=== PATIENT | female | born 1980 | race Two or more races ===

== ENCOUNTER 2023-07-21 04:37 | Inpatient (IN) | payer SELFPAY ==
[2023-07-21] MEDS ORDERED: Water For Irrigation,Sterile 1,000 ML Container IRR PRN (04:52)
[2023-07-21] MEDS ORDERED: Misoprostol 200 MCG Tab PO PRN (04:52)
[2023-07-21] MEDS ORDERED: Sodium Chloride 0.9% 20 ML SDV IV PRN ×2 (04:52→08:34)
[2023-07-21] MEDS ORDERED: Tranexamic Acid IN NACL,ISO-OS 1,000 MG in Premix Bag 1 BAG IV PRN (04:52)
[2023-07-21] MEDS ORDERED: Lidocaine 1% 50 ML MDV INJECT PRN (04:52)
[2023-07-21] MEDS ORDERED: Sodium Chloride 0.9% 2.5 ML Syringe FLUSH PRN ×2 (04:52→08:34)
[2023-07-21] MEDS ORDERED: Sodium Chloride 0.9% 10 ML Syringe FLUSH PRN ×2 (04:52→08:34)
[2023-07-21] MEDS ORDERED: Ondansetron 4 MG/2 ML SDV IVPUSH PRN ×3 (04:52→08:08)
[2023-07-21] MEDS ORDERED: Butorphanol 2 MG/ML SDV IVPUSH PRN (04:52)
[2023-07-21] MEDS ORDERED: Carboprost Tromethamine 250 MCG/1 mL Vial IM PRN (04:52)
[2023-07-21] MEDS: Ampicillin 2 GM in Sodium Chloride 0.9% 100 ML IV ONE (05:13)
[2023-07-21] MEDS: Lactated Ringers 1,000 ML IV SCH (05:13)
[2023-07-21] MEDS: Oxytocin/0.9 % Sodium Chloride 30 UNIT/500 ML BAG IV SCH (05:55)
[2023-07-21 06:18] LABS: HEMATOCRIT 38.8 % (37.0-47.0); HEMOGLOBIN 13.7 g/dL (12.0-16.0); MEAN CORPUSCULAR HEMOGLOBIN 31.1 pg (28.0-32.0); MEAN CORPUSCULAR HGB CONC 35.3 g/dL (32.0-36.0); MEAN PLATELET VOLUME 12.5 fL (9.4-12.3); PLATELET COUNT,PLT 265 K/uL (150-400); RED BLOOD CELL COUNT 4.41 M/uL (4.10-5.30); WHITE BLOOD CELL COUNT,WBC 12.62 K/uL (3.9-11.3)
[2023-07-21] MEDS ORDERED: Succinylcholine/Sod PF 100 MG/5 ML SYRINGE IV ONE (06:36)
[2023-07-21] MEDS ORDERED: Propofol 200 MG/20 ML SDV ONE ×2 (06:40→07:10)
[2023-07-21] MEDS ORDERED: Oxytocin 10 Units/1 ML SDV ONE ×2 (06:45→06:58)
[2023-07-21] MEDS ORDERED: fentaNYL 100 MCG/2 ML SDV ONE ×2 (06:46→06:53)
[2023-07-21] MEDS ORDERED: ceFAZolin 1 GM Vial ONE ×2 (06:47→10:12)
[2023-07-21] MEDS ORDERED: Tranexamic Acid 1,000 MG/10 ML Vial ONE (06:47)
[2023-07-21] MEDS ORDERED: Calcium Chloride 10% 1 GM/10 ML Syringe ONE (06:51)
[2023-07-21] MEDS ORDERED: Ondansetron 4 MG/2 ML SDV ONE (06:54)
[2023-07-21] MEDS ORDERED: Sugammadex Sodium 200 MG/2 ML VIAL IV ONE (06:55)
[2023-07-21 07:01] LABS: A/G RATIO 0.5 (0.9-1.6); ALBUMIN 2.4 g/dL (3.4-5.0); BILIRUBIN TOTAL 0.3 mg/dL (0.2-1.0); CALCIUM 8.4 mg/dL (8.5-10.1); CARBON DIOXIDE,CO2 21.5 mmol/L (21.0-32.0); CREATININE 0.8 mg/dL (0.6-1.0); EST CRCL DRUG DOSING (CG) 66.47 mL/min; POTASSIUM,K 3.9 mmol/L (3.5-5.1); PROTEIN TOTAL,TP 6.9 g/dL (6.4-8.2)
[2023-07-21] MEDS ORDERED: Ropivacaine 0.5% 5 MG/ML 30 ML SDV ONE (07:13)
[2023-07-21] MEDS ORDERED: Morphine PF 10 MG/10 ML SDV ONE (07:14)
[2023-07-21] MEDS ORDERED: HYDROmorphone 2 MG/ML Syringe ONE (07:35)
[2023-07-21] MEDS ORDERED: Witch Hazel Medicated Pads 40/Jar TOP PRN (07:49)
[2023-07-21] MEDS ORDERED: Hydrocortisone 2.5% Crm 30 GM Tube TOP PRN (07:49)
[2023-07-21] MEDS ORDERED: Misoprostol 200 MCG Tab RECTAL PRN (07:49)
[2023-07-21] MEDS ORDERED: Bisacodyl 10 MG Supp RECTAL PRN (07:49)
[2023-07-21] MEDS ORDERED: diphenhydrAMINE 50 MG/ML SDV IVPUSH PRN (07:49)
[2023-07-21] MEDS ORDERED: Lanolin 100% Cream 7 GM Tube TOP PRN (07:49)
[2023-07-21] MEDS: HYDROmorphone 1 MG/ML Syringe ONE (07:59)
[2023-07-21] MEDS ORDERED: Oxytocin/0.9 % Sodium Chloride 30 UNIT/500 ML BAG IV SCH (08:00)
[2023-07-21] MEDS ORDERED: Lactated Ringers 1,000 ML IV SCH (08:00)
[2023-07-21] MEDS ORDERED: Acetaminophen 1,000 MG in Premix Bag 1 BAG IV SCH (08:00)
[2023-07-21] MEDS ORDERED: Rocuronium Bromide 50 MG/5 ML Syringe ONE (08:03)
[2023-07-21] MEDS ORDERED: HYDROmorphone 1 MG/ML Syringe IVPUSH PRN (08:08)
[2023-07-21] MEDS ORDERED: Morphine 2 MG/ML SYRINGE IVPUSH PRN (08:08)
[2023-07-21] MEDS ORDERED: Naloxone 0.4 MG/ML SDV IVPUSH PRN (08:08)
[2023-07-21] MEDS ORDERED: droPERidol 5 MG/2 ML SDV IVPUSH PRN (08:08)
[2023-07-21] MEDS ORDERED: Metoclopramide 10 MG/2 ML SDV IVPUSH PRN (08:08)
[2023-07-21] MEDS ORDERED: Albuterol 0.083% 2.5 MG/3 ML Neb Soln NEB PRN (08:08)
[2023-07-21] MEDS ORDERED: fentaNYL 50 MCG/ML SDV IVPUSH PRN (08:08)
[2023-07-21 08:14] LABS: C. TRACHOMATIS BY PCR NOT DETECTED; N. GONORRHOEAE BY PCR NOT DETECTED
[2023-07-21] MEDS ORDERED: Calcium Gluconate 10% 1 GM/10 ML SDV IV PRN (08:34)
[2023-07-21 08:43] LABS: PH,UMBILICAL ARTERIAL 7.076 (7.18-7.38)
[2023-07-21 08:44] LABS: PH,UMBILICAL VENOUS 7.091 (7.25-7.45)
[2023-07-21] MEDS: Labetalol 100 MG/20 ML MDV IVPUSH ONE (09:40)
[2023-07-21] MEDS: Magnesium Sulfate/Water 4 GM in Premix Bag 1 BAG IV ONE (09:43)
[2023-07-21] MEDS: Docusate Sodium 100 MG Cap PO SCH (09:48)
[2023-07-21] MEDS: Ferrous Sulfate 325 MG Tab PO SCH (09:48)
[2023-07-21] MEDS: Ketorolac 30 MG/ML SDV IVPUSH SCH (09:49)
[2023-07-21] MEDS: ceFAZolin 2 GM in Sodium Chloride 0.9% 50 ML IV SCH (09:52)
[2023-07-21] MEDS: Magnesium Sulfate/Water 20 GM/500 ML BAG IV SCH (10:08)
[2023-07-21 10:41] LABS: APPEARANCE,URINE CLEAR; BILIRUBIN,URINE NEGATIVE (NEGATIVE); COLOR,URINE YELLOW; GLUCOSE,URINE NEGATIVE (NEGATIVE); KETONES,URINE NEGATIVE (NEGATIVE); LEUKOCYTE ESTERASE,URINE NEGATIVE (NEGATIVE); NITRITE,URINE NEGATIVE (NEGATIVE); OCCULT BLOOD,URINE SMALL (NEGATIVE); PROTEIN,URINE TRACE mg/dL (NEGATIVE); UROBILINOGEN,URINE 0.2 EU/dL (<2.0)
[2023-07-21 11:00] LABS: CREATININE,URINE RAND 36.8 mg/dL; PROTEIN CREATININE RATIO,URINE 1.6; PROTEIN,URINE RANDOM 58.9 mg/dL (<11.9)
[2023-07-21 11:02] LABS: BACTERIA,URINE RARE (NEGATIVE); EPITHELIAL CELLS,URINE RARE (NONE-FEW); MUCUS,URINE LIGHT (NONE-MOD); RBC,URINE 0-2 (0-2/HPF); WBC,URINE 0-2 (0-5/HPF)
[2023-07-21 11:06] LABS: AMPHETAMINES SCREEN, URINE NEGATIVE (CUTOFF=500); BARBITURATE SCREEN,URINE NEGATIVE (CUTOFF=200); BENZODIAZEPINES SCREEN,URINE NEGATIVE (CUTOFF=150); BUPRENORPHINE SCREEN,URINE NEGATIVE (CUTOFF=10); METHADONE SCREEN, URINE NEGATIVE (CUTOFF=200); METHAMPHETAMINES SCREEN, URINE NEGATIVE (CUTOFF=500); OXYCODONE SCREEN,URINE NEGATIVE (CUT0FF=100); PCP SCREEN,URINE NEGATIVE (CUTOFF=25); THC SCREEN,URINE 20 NG/ML NEGATIVE (CUTOFF=50)
[2023-07-21] MEDS: Lisinopril 10 MG Tab PO SCH (11:07)
[2023-07-21] MEDS ORDERED: Simethicone 80 MG Tab.Chew PO SCH (12:00)
[2023-07-21] MEDS: Simethicone 80 MG Tab.Chew PO SCH (12:18)
[2023-07-21] MEDS: Acetaminophen 1,000 MG in Premix Bag 1 BAG IV SCH (14:18)
[2023-07-21] MEDS: NIFEdipine 10 MG Cap PO ONE (14:54)
[2023-07-21] MEDS ORDERED: Misoprostol 200 MCG Tab ONE (18:38)
[2023-07-21] MEDS ORDERED: Temazepam 15 MG Cap PO PRN (21:00)
[2023-07-22 02:54] LABS: HEMATOCRIT 32.4 % (37.0-47.0); HEMOGLOBIN 11.7 g/dL (12.0-16.0); MEAN CORPUSCULAR HEMOGLOBIN 31.3 pg (28.0-32.0); MEAN CORPUSCULAR HGB CONC 36.1 g/dL (32.0-36.0); MEAN CORPUSCULAR VOLUME 86.6 fL (83.0-99.0); MEAN PLATELET VOLUME 11.3 fL (9.4-12.3); PLATELET COUNT,PLT 251 K/uL (150-400); RED BLOOD CELL COUNT 3.74 M/uL (4.10-5.30); WHITE BLOOD CELL COUNT,WBC 14.83 K/uL (3.9-11.3)
[2023-07-22 02:59] LABS: GROUP B STREP BY PCR POSITIVE (NEGATIVE)
[2023-07-22] MEDS: Acetaminophen/oxyCODONE 325-5 MG Tab PO PRN ×2 (13:54→19:59)
[2023-07-23] MEDS: Ibuprofen 800 MG Tab PO PRN (00:27)
== END 2023-07-23 23:32 | disposition home or self-care (01) | DRG 787 ==
LOC: MW.OBCHECK 04:37 → MW.OB 04:38 → MW.OBCHECK 04:44 → MW.OB 04:45 → OBSVTOIN 06:41 → MW.OB 23:47
PROVIDERS: ADMIT Obstetrics & Gynecology; ATTEND Obstetrics & Gynecology
PROC: 10D00Z1 Extraction of Products of Conception, Low, Open Approach (ICD-10-PCS; principal; 2023-07-21 06:30)
DX: O14.14 Severe pre-eclampsia complicating childbirth (principal); D62 Acute posthemorrhagic anemia; Z3A.38 38 weeks gestation of pregnancy; Z37.0 Single live birth; O76 Abnormality in fetal heart rate and rhythm complicating labor and delivery; O62.1 Secondary uterine inertia; O99.824 Streptococcus B carrier state complicating childbirth; O99.02 Anemia complicating childbirth
CPT/HCPCS: 36415; 51702; 59025; 59514; 74018; 74018-26; 80053; 80305-QW; 81001; 82570; 82803; 83615; 83735; 84112; 84156; 85027; 86592; 86762; 86803; 86850; 86900; 86901; 87340; 87389; 87491; 87591; 87653; A9270-GY; J0131; J0290; J0330; J0690; J1170; J1885; J1921; J2274; J2405; J2590; J2704; J2795; J3010; J3475; J3490; J7120

== ENCOUNTER 2024-02-28 04:23 | Emergency (ER) | payer SELFPAY ==
[2024-02-28] MEDS ORDERED: Sodium Chloride 0.9% 10 ML Syringe FLUSH PRN (05:06)
[2024-02-28] MEDS ORDERED: Sodium Chloride 0.9% 2.5 ML Syringe FLUSH PRN (05:06)
[2024-02-28] MEDS: Pantoprazole 40 MG in Sodium Chloride 0.9% 10 ML IVPUSH ONE (06:13)
[2024-02-28 06:23] LABS: BASOPHILS ABSOLUTE AUTO 0.02 K/uL (0.00-0.20); BASOPHILS PERCENT AUTO 0.2 % (0.0-1.0); EOSINOPHILS PERCENT AUTO 1.8 % (0.0-6.0); HEMATOCRIT 41.6 % (37.0-47.0); HEMOGLOBIN 14.3 g/dL (12.0-16.0); IMMATURE GRAN ABSOLUTE AUTO 0.03 K/uL (0.00-0.05); IMMATURE GRAN PERCENT AUTO 0.3 % (0.0-0.4); LYMPHOCYTES ABSOLUTE AUTO 2.26 K/uL (1.00-4.80); LYMPHOCYTES PERCENT AUTO 20.2 % (24.0-44.0); MEAN CORPUSCULAR HEMOGLOBIN 28.5 pg (28.0-32.0); MEAN CORPUSCULAR HGB CONC 34.4 g/dL (32.0-36.0); MEAN CORPUSCULAR VOLUME 82.9 fL (83.0-99.0); MEAN PLATELET VOLUME 9.2 fL (9.4-12.3); MONOCYTES ABSOLUTE AUTO 0.62 K/uL (0.00-0.80); MONOCYTES PERCENT AUTO 5.5 % (0.0-8.0); NEUTROPHILS ABSOLUTE AUTO 8.08 K/uL (1.80-7.70); PLATELET COUNT,PLT 355 K/uL (150-400); RED BLOOD CELL COUNT 5.02 M/uL (4.10-5.30); WHITE BLOOD CELL COUNT,WBC 11.21 K/uL (3.9-11.3)
[2024-02-28 06:30] LABS: APPEARANCE,URINE CLEAR; BILIRUBIN,URINE NEGATIVE (NEGATIVE); COLOR,URINE YELLOW; GLUCOSE,URINE NEGATIVE (NEGATIVE); KETONES,URINE NEGATIVE (NEGATIVE); LEUKOCYTE ESTERASE,URINE NEGATIVE (NEGATIVE); NITRITE,URINE NEGATIVE (NEGATIVE); OCCULT BLOOD,URINE NEGATIVE (NEGATIVE); PH,URINE 6.5 (5.0-8.0); PROTEIN,URINE NEGATIVE (NEGATIVE); UROBILINOGEN,URINE 0.2 EU/dL (<2.0)
[2024-02-28 06:31] LABS: AMORPHOUS SEDIMENT,URINE LIGHT (NEGATIVE); BACTERIA,URINE FEW (NEGATIVE); MUCUS,URINE NOT SEEN (NONE-MOD); RBC,URINE 0-1 (0-2/HPF); SQUAMOUS EPITHELIAL CELLS,UR FEW; WBC,URINE 0-1 (0-5/HPF)
[2024-02-28 06:45] LABS: A/G RATIO 1.1 (0.9-1.6); ALANINE AMINOTRANSFERASE,ALT 49 IU/L (14-63); ALBUMIN 4.3 g/dL (3.4-5.0); ALKALINE PHOSPHATASE 111 U/L (46-116); ASPARTATE AMNIOTRANSFERASE,AST 61 IU/L (15-37); BILIRUBIN TOTAL 0.3 mg/dL (0.2-1.0); BLOOD UREA NITROGEN,BUN 11 mg/dL (7.0-18.0); CALCIUM 9.1 mg/dL (8.5-10.1); CARBON DIOXIDE,CO2 28.3 mmol/L (21.0-32.0); CHLORIDE,CL 103 mmol/L (98-107); CREATININE 0.9 mg/dL (0.6-1.0); GLUCOSE RANDOM 131 mg/dL (74-106); LIPASE 51 U/L (16-77); POTASSIUM,K 3.9 mmol/L (3.5-5.1); PROTEIN TOTAL,TP 8.3 g/dL (6.4-8.2); SODIUM,NA 139 mmol/L (136-145)
[2024-02-28 06:46] LABS: ESTIMATED GFR 82 mL/min (>60)
[2024-02-28] MEDS ORDERED: Morphine 2 MG/ML SYRINGE IVPUSH PRN (07:37)
[2024-02-28] MEDS: Iopamidol 755 MG/ML 500 ML Multipack Bottle IVPUSH STA (08:01)
[2024-02-28] MEDS: Ondansetron 4 MG/2 ML SDV IVPUSH ONE (08:02)
== END 2024-02-28 09:17 | disposition home or self-care (01) ==
LOC: MW.ED 04:23
DX: K80.20 Calculus of gallbladder without cholecystitis without obstruction (principal); I10 Essential (primary) hypertension; Z79.899 Other long term (current) drug therapy
CPT/HCPCS: 36415; 74177; 80053; 81001; 81025; 83690; 84484; 85025; 96374; 96375; 99284; J2405; J2470; J3490; Q9967

== ENCOUNTER 2024-04-09 19:36 | Emergency (ER) | payer SELFPAY ==
[2024-04-09 20:52] LABS: BASOPHILS ABSOLUTE AUTO 0.02 K/uL (0.00-0.20); BASOPHILS PERCENT AUTO 0.1 % (0.0-1.0); EOSINOPHILS PERCENT AUTO 0.7 % (0.0-6.0); HEMATOCRIT 38.7 % (37.0-47.0); HEMOGLOBIN 13.5 g/dL (12.0-16.0); IMMATURE GRAN ABSOLUTE AUTO 0.03 K/uL (0.00-0.05); IMMATURE GRAN PERCENT AUTO 0.2 % (0.0-0.4); LYMPHOCYTES ABSOLUTE AUTO 1.77 K/uL (1.00-4.80); LYMPHOCYTES PERCENT AUTO 12.8 % (24.0-44.0); MEAN CORPUSCULAR HEMOGLOBIN 28.4 pg (28.0-32.0); MEAN CORPUSCULAR HGB CONC 34.9 g/dL (32.0-36.0); MEAN CORPUSCULAR VOLUME 81.3 fL (83.0-99.0); MEAN PLATELET VOLUME 9.2 fL (9.4-12.3); MONOCYTES ABSOLUTE AUTO 0.76 K/uL (0.00-0.80); MONOCYTES PERCENT AUTO 5.5 % (0.0-8.0); NEUTROPHILS ABSOLUTE AUTO 11.17 K/uL (1.80-7.70); NEUTROPHILS PERCENT AUTO 80.7 % (41.0-71.0); PLATELET COUNT,PLT 340 K/uL (150-400); RED BLOOD CELL COUNT 4.76 M/uL (4.10-5.30); WHITE BLOOD CELL COUNT,WBC 13.85 K/uL (3.9-11.3)
[2024-04-09] MEDS: Acetaminophen 500 MG Tab PO ONE (21:04)
[2024-04-09] MEDS: Sodium Chloride 0.9% 1,000 ML IV ONE (21:05)
[2024-04-09] MEDS: Lidocaine 4% 1 each Patch TOP STA (21:09)
[2024-04-09 21:12] LABS: APPEARANCE,URINE SLT CLOUDY; BILIRUBIN,URINE NEGATIVE (NEGATIVE); COLOR,URINE YELLOW; GLUCOSE,URINE NEGATIVE (NEGATIVE); KETONES,URINE NEGATIVE (NEGATIVE); LEUKOCYTE ESTERASE,URINE TRACE (NEGATIVE); NITRITE,URINE POSITIVE (NEGATIVE); OCCULT BLOOD,URINE NEGATIVE (NEGATIVE); PROTEIN,URINE NEGATIVE (NEGATIVE); UROBILINOGEN,URINE 0.2 EU/dL (<2.0)
[2024-04-09 21:22] LABS: BACTERIA,URINE 2+ (NEGATIVE); EPITHELIAL CELLS,URINE FEW (NONE-FEW); MUCUS,URINE LIGHT (NONE-MOD); RBC,URINE 0-1 (0-2/HPF); WBC,URINE 0-1 (0-5/HPF)
[2024-04-09 21:27] LABS: ALANINE AMINOTRANSFERASE,ALT 62 IU/L (14-63); ALBUMIN 4.1 g/dL (3.4-5.0); ALKALINE PHOSPHATASE 137 U/L (46-116); ASPARTATE AMNIOTRANSFERASE,AST 116 IU/L (15-37); BILIRUBIN TOTAL 0.3 mg/dL (0.2-1.0); BLOOD UREA NITROGEN,BUN 10 mg/dL (7.0-18.0); CALCIUM 8.8 mg/dL (8.5-10.1); CARBON DIOXIDE,CO2 25.9 mmol/L (21.0-32.0); CHLORIDE,CL 100 mmol/L (98-107); CREATININE 0.9 mg/dL (0.6-1.0); ESTIMATED GFR 82 mL/min (>60); GLUCOSE RANDOM 147 mg/dL (74-106); LIPASE 51 U/L (16-77); POTASSIUM,K 3.7 mmol/L (3.5-5.1); PROTEIN TOTAL,TP 8.1 g/dL (6.4-8.2); SODIUM,NA 139 mmol/L (136-145)
[2024-04-09] MEDS: Cefdinir 300 MG Cap PO ONE (22:27)
== END 2024-04-09 22:37 | disposition home or self-care (01) ==
LOC: MW.ED 19:36
DX: N39.0 Urinary tract infection, site not specified (principal); I10 Essential (primary) hypertension; Z79.899 Other long term (current) drug therapy; Z75.8 Other problems related to medical facilities and other health care
CPT/HCPCS: 36415; 71045; 80053; 81001; 81025; 83690; 83735; 84484; 85025; 87086; 87428; 99284; A9270; J7030

== ENCOUNTER 2024-06-17 15:09 | Emergency (ER) | payer OTHER ==
[2024-06-17] MEDS ORDERED: Sodium Chloride 0.9% 10 ML Syringe FLUSH PRN (15:16)
[2024-06-17] MEDS ORDERED: Sodium Chloride 0.9% 2.5 ML Syringe FLUSH PRN (15:16)
[2024-06-17] MEDS: Sodium Chloride 0.9% 1,000 ML IV ONE (17:05)
[2024-06-17] MEDS: Ondansetron 4 MG/2 ML SDV IVPUSH ONE (17:05)
[2024-06-17] MEDS: Ketorolac 30 MG/ML SDV IVPUSH ONE (17:05)
[2024-06-17 17:22] LABS: BASOPHILS ABSOLUTE AUTO 0.03 K/uL (0.00-0.20); BASOPHILS PERCENT AUTO 0.3 % (0.0-1.0); EOSINOPHILS ABSOLUTE AUTO 0.06 K/uL (0.00-0.45); EOSINOPHILS PERCENT AUTO 0.5 % (0.0-6.0); HEMATOCRIT 38.6 % (37.0-47.0); HEMOGLOBIN 13.6 g/dL (12.0-16.0); IMMATURE GRAN ABSOLUTE AUTO 0.04 K/uL (0.00-0.05); IMMATURE GRAN PERCENT AUTO 0.3 % (0.0-0.4); LYMPHOCYTES ABSOLUTE AUTO 2.21 K/uL (1.00-4.80); LYMPHOCYTES PERCENT AUTO 19.3 % (24.0-44.0); MEAN CORPUSCULAR HEMOGLOBIN 28.6 pg (28.0-32.0); MEAN CORPUSCULAR HGB CONC 35.2 g/dL (32.0-36.0); MEAN CORPUSCULAR VOLUME 81.3 fL (83.0-99.0); MEAN PLATELET VOLUME 9.7 fL (9.4-12.3); MONOCYTES ABSOLUTE AUTO 0.62 K/uL (0.00-0.80); MONOCYTES PERCENT AUTO 5.4 % (0.0-8.0); NEUTROPHILS ABSOLUTE AUTO 8.47 K/uL (1.80-7.70); NEUTROPHILS PERCENT AUTO 74.2 % (41.0-71.0); PLATELET COUNT,PLT 354 K/uL (150-400); RED BLOOD CELL COUNT 4.75 M/uL (4.10-5.30); WHITE BLOOD CELL COUNT,WBC 11.43 K/uL (3.9-11.3)
[2024-06-17] MEDS: Iopamidol 755 MG/ML 500 ML Multipack Bottle IVPUSH STA (18:06)
[2024-06-18 00:16] LABS: A/G RATIO 1.3 (0.9-1.6); ALBUMIN 4.5 g/dL (3.4-5.0); BILIRUBIN TOTAL 0.3 mg/dL (0.2-1.0); CALCIUM 8.8 mg/dL (8.5-10.1); CARBON DIOXIDE,CO2 26.8 mmol/L (21.0-32.0); CREATININE 0.7 mg/dL (0.6-1.0); EST CRCL DRUG DOSING (CG) 82.8 mL/min; POTASSIUM,K 3.4 mmol/L (3.5-5.1); PROTEIN TOTAL,TP 7.9 g/dL (6.4-8.2)
== END 2024-06-17 21:45 | disposition left against medical advice (07) ==
LOC: MW.ED 15:09
DX: K80.20 Calculus of gallbladder without cholecystitis without obstruction (principal); I10 Essential (primary) hypertension; Z79.899 Other long term (current) drug therapy
CPT/HCPCS: 36415; 74177; 76705; 80053; 83690; 84703; 85025; 96361; 96374; 96375; 99284; J1885; J2405; J7030; Q9967; 99283

== ENCOUNTER 2024-06-29 05:31 | Emergency (ER) | payer OTHER ==
[2024-06-29] MEDS ORDERED: droPERidol 2.5 MG/ML SDV IVPUSH PRN (05:41)
[2024-06-29 05:44] LABS: BASOPHILS ABSOLUTE AUTO 0.02 K/uL (0.00-0.20); BASOPHILS PERCENT AUTO 0.2 % (0.0-1.0); EOSINOPHILS ABSOLUTE AUTO 0.16 K/uL (0.00-0.45); EOSINOPHILS PERCENT AUTO 1.5 % (0.0-6.0); HEMATOCRIT 40.5 % (37.0-47.0); HEMOGLOBIN 13.8 g/dL (12.0-16.0); IMMATURE GRAN ABSOLUTE AUTO 0.03 K/uL (0.00-0.05); IMMATURE GRAN PERCENT AUTO 0.3 % (0.0-0.4); LYMPHOCYTES ABSOLUTE AUTO 3.15 K/uL (1.00-4.80); LYMPHOCYTES PERCENT AUTO 30.3 % (24.0-44.0); MEAN CORPUSCULAR HEMOGLOBIN 28.3 pg (28.0-32.0); MEAN CORPUSCULAR HGB CONC 34.1 g/dL (32.0-36.0); MEAN CORPUSCULAR VOLUME 83.2 fL (83.0-99.0); MEAN PLATELET VOLUME 9.4 fL (9.4-12.3); MONOCYTES ABSOLUTE AUTO 0.55 K/uL (0.00-0.80); MONOCYTES PERCENT AUTO 5.3 % (0.0-8.0); NEUTROPHILS ABSOLUTE AUTO 6.49 K/uL (1.80-7.70); NEUTROPHILS PERCENT AUTO 62.4 % (41.0-71.0); PLATELET COUNT,PLT 355 K/uL (150-400); RED BLOOD CELL COUNT 4.87 M/uL (4.10-5.30)
[2024-06-29] MEDS: Pantoprazole 40 MG in Sodium Chloride 0.9% 10 ML IVPUSH ONE (05:51)
[2024-06-29] MEDS: Ondansetron 4 MG/2 ML SDV IVPUSH ONE (05:52)
[2024-06-29] MEDS: HYDROmorphone 0.5 MG/0.5 ML Syringe IVPUSH ONE (05:52)
[2024-06-29] MEDS: Sodium Chloride 0.9% 1,000 ML IV ONE (05:52)
[2024-06-29 06:12] LABS: A/G RATIO 1.1 (0.9-1.6); BILIRUBIN TOTAL 0.4 mg/dL (0.2-1.0); CALCIUM 8.7 mg/dL (8.5-10.1); CARBON DIOXIDE,CO2 25.6 mmol/L (21.0-32.0); CREATININE 0.8 mg/dL (0.6-1.0); EST CRCL DRUG DOSING (CG) 72.45 mL/min; POTASSIUM,K 3.3 mmol/L (3.5-5.1); PROTEIN TOTAL,TP 7.8 g/dL (6.4-8.2)
[2024-06-29] MEDS: Iopamidol 755 MG/ML 500 ML Multipack Bottle IVPUSH ONE (06:15)
== END 2024-06-29 08:12 | disposition home or self-care (01) ==
LOC: MW.ED 05:31
DX: R10.84 Generalized abdominal pain (principal); G89.29 Other chronic pain; R11.2 Nausea with vomiting, unspecified; Z79.899 Other long term (current) drug therapy; Z87.59 Personal history of other complications of pregnancy, childbirth and the puerperium
CPT/HCPCS: 36415; 74177; 80053; 83605; 83690; 84703; 85025; 96361; 96374; 96375; 99284; J2405; J2470; J7030; Q9967; 99283

== ENCOUNTER 2024-07-01 09:24 | Day surgery (SDC) | payer OTHER ==
[2024-07-01] MEDS ORDERED: Propofol 200 MG/20 ML SDV ONE ×2 (10:06→11:19)
[2024-07-01] MEDS: Lactated Ringers 1,000 ML IV SCH (10:08)
[2024-07-01] MEDS ORDERED: Lactated Ringers 1,000 ML IV SCH (11:45)
== END 2024-07-01 12:05 | disposition home or self-care (01) ==
LOC: MW.SDS 09:24
PROVIDERS: ATTEND Surgery
DX: K31.89 Other diseases of stomach and duodenum (principal); K29.50 Unspecified chronic gastritis without bleeding; I10 Essential (primary) hypertension
CPT/HCPCS: 43239; 81025; J2704; J7120; 00731

== ENCOUNTER 2024-07-08 06:01 | Day surgery (SDC) | payer OTHER ==
[~2024-07-08 06:01] MED LIST: ceFAZolin 2 GM in Sodium Chloride 0.9% 50 ML IV ONE
[2024-07-08] MEDS: Lactated Ringers 1,000 ML IV SCH (07:00)
[2024-07-08] MEDS ORDERED: Bupivacaine 0.5% 30 ML SDV ONE (07:17)
[2024-07-08] MEDS: Scopalamine 1mg/3day Transdermal Patch TRDERM PRN (07:18)
[2024-07-08] MEDS ORDERED: Rocuronium Bromide 50 MG/5 ML Syringe ONE (07:39)
[2024-07-08] MEDS ORDERED: propofoL 500 MG/50 ML 50 ML ONE (07:39)
[2024-07-08] MEDS ORDERED: fentaNYL 250 MCG/5 ML SDV ONE (07:39)
[2024-07-08] MEDS ORDERED: Propofol 200 MG/20 ML SDV ONE ×2 (07:39→08:58)
[2024-07-08] MEDS ORDERED: dexmedeTOMIDine HCl 200 MCG/2 ML SDV ONE (07:39)
[2024-07-08] MEDS ORDERED: Ropivacaine 0.5% 5 MG/ML 30 ML SDV ONE (07:43)
[2024-07-08] MEDS ORDERED: Famotidine 20 MG/2 ML SDV ONE (07:43)
[2024-07-08] MEDS ORDERED: Morphine 10 MG/ML SDV ONE (07:44)
[2024-07-08] MEDS ORDERED: fentaNYL 50 MCG/ML SDV IVPUSH PRN (07:54)
[2024-07-08] MEDS ORDERED: Ondansetron 4 MG/2 ML SDV IVPUSH PRN (07:54)
[2024-07-08] MEDS ORDERED: Morphine 2 MG/ML SYRINGE IVPUSH PRN (07:54)
[2024-07-08] MEDS ORDERED: Naloxone 0.4 MG/ML SDV IVPUSH PRN (07:54)
[2024-07-08] MEDS ORDERED: Phenylephrine HCl In 0.9% NaCl 1 MG/10 ML Syringe IVPUSH PRN (07:54)
[2024-07-08] MEDS ORDERED: Metoclopramide 10 MG/2 ML SDV IVPUSH PRN (07:54)
[2024-07-08] MEDS ORDERED: Albuterol 0.083% 2.5 MG/3 ML Neb Soln NEB PRN (07:54)
[2024-07-08] MEDS ORDERED: HYDROmorphone 1 MG/ML Syringe IVPUSH PRN (07:54)
[2024-07-08] MEDS ORDERED: Ketamine HCL/NACL, ISO-OSM 50 MG/5 ML Syringe ONE (08:15)
[2024-07-08] MEDS ORDERED: Ondansetron 4 MG/2 ML SDV ONE (08:43)
[2024-07-08] MEDS ORDERED: ceFAZolin 1 GM Vial ONE (08:43)
[2024-07-08] MEDS ORDERED: Ketorolac 30 MG/ML SDV ONE (08:43)
[2024-07-08] MEDS ORDERED: Dexamethasone 4 MG/ML 5 ML MDV ONE (08:43)
[2024-07-08] MEDS ORDERED: fentaNYL 100 MCG/2 ML SDV ONE (08:46)
[2024-07-08] MEDS ORDERED: Acetaminophen/HYDROcodone 325-5 MG Tab PO PRN (09:27)
[2024-07-08] MEDS ORDERED: Lactated Ringers 1,000 ML IV SCH (09:30)
[2024-07-08] MEDS ORDERED: ePHEDrine 50 MG/ML SDV ONE (09:43)
== END 2024-07-08 12:10 | disposition home or self-care (01) ==
LOC: MW.SDS 06:01
PROVIDERS: ATTEND Surgery
DX: K80.10 Calculus of gallbladder with chronic cholecystitis without obstruction (principal); I10 Essential (primary) hypertension
CPT/HCPCS: 47562; 64488; 81025; A9270; J0665; J0690; J1100; J1885; J2272; J2405; J2704; J2795; J3010; J7120; 00790; J3490